=== PATIENT | female | born 1950 | race Caucasian/White ===

== ENCOUNTER 2021-06-18 15:53 | Observation (INO) ==
[2021-06-18] MEDS ORDERED: Perflutren Lipid Microsphere 1.3 ML in 0.9 % Sodium Chloride 8.7 ML IVP PRN (20:35)
[2021-06-18] MEDS ORDERED: Ondansetron 4 MG/2 ML VIAL IVP PRN (20:53)
[2021-06-18] MEDS ORDERED: Naloxone 0.4 MG/ML INJ IVP PRN (20:53)
[2021-06-18 21:08] LABS: Basophils % 0.5 %; Eosinophils # 0.2 K/mcL (0.0-0.6); Eosinophils % 2.2 %; Hematocrit 43.9 % (35.3-44.9); Hemoglobin 14.6 g/dL (11.5-15.4); Immature Granulocytes % 0.2 % (0-4); Lymphocytes # 2.4 K/mcL (0.6-4.6); Lymphocytes % 29.7 %; Mean Corpuscular HGB Conc 33.3 g/dL (31.6-35.5); Mean Corpuscular Hemoglobin 28.9 pg (28.0-33.3); Mean Corpuscular Volume 86.8 fL (83.0-100.0); Mean Platelet Volume 10.4 fL (9.4-12.4); Monocytes # 0.5 K/mcL (0.0-1.3); Monocytes % 6.2 %; Neutrophils # 4.9 K/mcL (1.6-8.9); Platelet Count 183 K/mcL (140-400); Red Blood Count 5.06 M/mcL (3.82-4.97); Red Cell Distribution Width 13.5 % (11.5-14.5); Segmented Neutrophils % 61.2 %
[2021-06-18] MEDS ORDERED: *HR* Heparin 5,000 UNIT/ML VIAL IVP PRN ×2 (21:08)
[2021-06-18] MEDS ORDERED: Nitroglycerin 0.4 MG TAB.SUBL SL PRN (21:09)
[2021-06-18] MEDS ORDERED: Morphine Sulfate 2 MG/ML SYRINGE IVP PRN (21:09)
[2021-06-18] MEDS ORDERED: Heparin 25,000UNIT/250ML 1/2NS 25,000 UNIT/250 ML IV.SOLN IVC SCH (21:15)
[2021-06-18 21:28] LABS: Chol/HDL Ratio 3.1 (0-4.9)
[2021-06-18 21:30] LABS: Alanine Aminotransferase 13 Units/L (7-52); Albumin 3.8 g/dL (3.5-5.7); Albumin/Globulin Ratio 1.4 (1.1-2.2); Alkaline Phosphatase 89 Units/L (34-104); Aspartate Amino Transferase 18 Units/L (13-39); BUN/Creatinine Ratio 23 (6-26); Bilirubin,Total 0.9 mg/dL (0.3-1.0); Blood Urea Nitrogen 22 mg/dL (8-23); Calcium 9.2 mg/dL (8.6-10.3); Carbon Dioxide 23 mEq/L (23-29); Chloride 106 mEq/L (98-107); Globulin 2.8 g/dL (2.4-3.5); Glucose 110 mg/dL (70-105); Magnesium 1.9 mg/dL (1.6-2.6); Osmolality,Calculated 288 (280-300); Potassium 4.3 mEq/L (3.5-5.1); Sodium 137 mEq/L (136-145); Total Protein 6.6 g/dL (6.4-8.9); Troponin I < 0.03 ng/mL (< 0.04); eGFR For African Americans > 60 (> 60); eGFR For Non-African Americans 58 (> 60)
[2021-06-18 21:36] LABS: Activated Partial Thrombo Time 36.3 Seconds (26.0-36.0)
[2021-06-18 21:42] LABS: Thyroid Stimulating Hormone 4.424 mcIU/mL (0.340-5.600)
[2021-06-18] MEDS: Heparin 25,000UNIT/250ML 1/2NS 25,000 UNIT/250 ML IV.SOLN IVC SCH (21:52)
[2021-06-18] MEDS: Famotidine 20 MG/2 ML VIAL IVP SCH (21:53)
[2021-06-18] MEDS: traZODone 50 MG TABLET PO SCH (23:19)
[2021-06-19 05:54] LABS: Hematocrit 43.3 % (35.3-44.9); Hemoglobin 14.3 g/dL (11.5-15.4); Mean Corpuscular Hemoglobin 28.8 pg (28.0-33.3); Mean Corpuscular Volume 87.1 fL (83.0-100.0); Mean Platelet Volume 10.4 fL (9.4-12.4); Platelet Count 167 K/mcL (140-400); Red Blood Count 4.97 M/mcL (3.82-4.97); Red Cell Distribution Width 13.9 % (11.5-14.5); White Blood Count 7.4 K/mcL (4.3-11.1)
[2021-06-19 06:02] LABS: INR 1.4; Prothrombin Time 15.3 Seconds (9.4-12.1)
[2021-06-19 06:17] LABS: BUN/Creatinine Ratio 21 (6-26); Blood Urea Nitrogen 21 mg/dL (8-23); Calcium 8.8 mg/dL (8.6-10.3); Carbon Dioxide 23 mEq/L (23-29); Chloride 107 mEq/L (98-107); Glucose 116 mg/dL (70-105); Osmolality,Calculated 288 (280-300); Potassium 3.9 mEq/L (3.5-5.1); Sodium 137 mEq/L (136-145); eGFR For African Americans > 60 (> 60); eGFR For Non-African Americans 55 (> 60)
[2021-06-19 06:20] LABS: Troponin I < 0.03 ng/mL (< 0.04)
[2021-06-19 06:22] LABS: Activated Partial Thrombo Time > 360.0 Seconds (26.0-36.0)
[2021-06-19] MEDS: amLODIPine 5 MG TABLET PO SCH (09:18)
[2021-06-19] MEDS: Aspirin Enteric Coated 81 MG Tablet PO SCH (09:18)
[2021-06-19] MEDS: Famotidine 20 MG/2 ML VIAL IVP SCH ×2 (09:19→19:50)
[2021-06-19] MEDS: lisinopriL 20 MG TABLET PO SCH (09:19)
[2021-06-19] MEDS: Acetaminophen 325 MG TABLET PO PRN ×2 (09:31→19:49)
[2021-06-19] MEDS: Metoprolol XL (24 HR) Succ 25 MG TAB.ER.24H PO SCH (12:31)
[2021-06-19 14:20] LABS: Bacteria,Urine Few per hpf (None-Few); Bilirubin,Urine Negative (Negative); Blood,Urine Negative (Negative); Clarity,Urine Clear (Clear); Color,Urine Yellow (Yellow); Glucose,Urine (UA) Normal (Normal); Hyaline Casts,Urine Moderate per lpf (None Seen); Ketones,Urine Negative (Negative); Leukocyte Esterase,Urine Moderate (Negative); Mucus,Urine Few per lpf (None-Few); Nitrite,Urine Negative (Negative); Protein,Urine Trace mg/dL (Neg-Trace); Specific Gravity,Urine 1.029 (1.010-1.025); Squamous Epithelial Cell,Urine Moderate per hpf (None-Few); Urobilinogen,Urine Normal (Normal)
[2021-06-19] MEDS: Heparin 25,000UNIT/250ML 1/2NS 25,000 UNIT/250 ML IV.SOLN IVC SCH (16:59)
[2021-06-19] MEDS ORDERED: Ibuprofen 600 MG TABLET PO PRN (17:13)
[2021-06-19] MEDS: traZODone 50 MG TABLET PO SCH (19:49)
[2021-06-20 04:32] LABS: Hematocrit 40.5 % (35.3-44.9); Hemoglobin 13.1 g/dL (11.5-15.4); Mean Corpuscular HGB Conc 32.3 g/dL (31.6-35.5); Mean Corpuscular Hemoglobin 28.4 pg (28.0-33.3); Mean Corpuscular Volume 87.9 fL (83.0-100.0); Platelet Count 164 K/mcL (140-400); Red Blood Count 4.61 M/mcL (3.82-4.97); Red Cell Distribution Width 13.7 % (11.5-14.5); White Blood Count 6.4 K/mcL (4.3-11.1)
[2021-06-20] MEDS: lisinopriL 20 MG TABLET PO SCH (09:35)
[2021-06-20] MEDS: Aspirin Enteric Coated 81 MG Tablet PO SCH (09:35)
[2021-06-20] MEDS: Metoprolol XL (24 HR) Succ 25 MG TAB.ER.24H PO SCH (09:35)
[2021-06-20] MEDS: amLODIPine 5 MG TABLET PO SCH (09:35)
[2021-06-20] MEDS: Famotidine 20 MG/2 ML VIAL IVP SCH ×2 (09:36→20:42)
[2021-06-20] MEDS: Acetaminophen 325 MG TABLET PO PRN (12:03)
[2021-06-20] MEDS: Apixaban 5 MG TABLET PO SCH ×2 (14:24→20:42)
[2021-06-20] MEDS: traZODone 50 MG TABLET PO SCH (20:42)
[2021-06-21 08:04] VITALS: BP 107/74; PULSE 65; TEMP 98.5; O2SAT 95
[2021-06-21] MEDS: Aspirin Enteric Coated 81 MG Tablet PO SCH (08:59)
[2021-06-21] MEDS: Metoprolol XL (24 HR) Succ 25 MG TAB.ER.24H PO SCH (08:59)
[2021-06-21] MEDS: Famotidine 20 MG/2 ML VIAL IVP SCH (09:00)
[2021-06-21] MEDS: lisinopriL 20 MG TABLET PO SCH (09:00)
[2021-06-21] MEDS: Apixaban 5 MG TABLET PO SCH (09:00)
[2021-06-21] MEDS: amLODIPine 5 MG TABLET PO SCH (09:00)
== END 2021-06-21 11:38 | disposition home or self-care (01) ==
LOC: 3BNU → SUATTDRO 18:36
PROVIDERS: ADMIT Internal Medicine; ATTEND Registered Nurse